=== PATIENT | female | born 1960 ===

== ENCOUNTER 2018-09-13 09:22 | Observation (INO) | payer SELFPAY ==
[2018-09-13] MEDS ORDERED: ASPIRIN PO ONE (09:41)
[2018-09-13 09:57] LABS: Basophils % (Auto) 0.7 % (0.0-1.8); Eosinophils # (Auto) 0.1 K/mm3 (0.0-0.4); Eosinophils % (Auto) 2.3 % (0.0-4.3); Hematocrit 36.8 % (30.3-42.9); Hemoglobin 12.7 gm/dl (10.1-14.3); Lymphocytes # (Auto) 1.6 K/mm3 (1.2-5.4); Lymphocytes % (Auto) 29.3 % (13.4-35.0); Mean Corpuscular HGB Conc 35 % (30-34); Mean Corpuscular Volume 84 fl (79-97); Monocytes # (Auto) 0.4 K/mm3 (0.0-0.8); Monocytes % (Auto) 6.6 % (0.0-7.3); Platelet Count 220 K/mm3 (140-440); Red Blood Count 4.38 M/mm3 (3.65-5.03); Red Cell Distribution Width 13.2 % (13.2-15.2)
--- NOTE | 2018-09-13 10:07 | XRay Report ---
Chest 2 views: History: Chest pain. Findings: Normal cardiomediastinal silhouette. Trachea is midline. No consolidation, pneumothorax or pleural effusion. Impression: No acute cardiopulmonary findings.
[2018-09-13 10:34] LABS: Hemolysis Index 0
[2018-09-13 11:18] LABS: INR 1.07 (0.87-1.13)
[2018-09-13] MEDS ORDERED: IBUPROFEN PO ONE (12:23)
[2018-09-13] MEDS ORDERED: TYLENOL PO ONE (12:23)
[2018-09-13] MEDS ORDERED: CARAFATE PO ONE (12:23)
[2018-09-13] MEDS ORDERED: PEPCID IV ONE (12:23)
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
[2018-09-13 12:30] LABS: BUN/Creatinine Ratio 10; Blood Urea Nitrogen 7 mg/dL (7-17); Calcium 8.8 mg/dL (8.4-10.2)
[2018-09-13] MEDS ORDERED: PEPCID ONE (12:39)
[2018-09-13] MEDS ORDERED: PEPCID PO ONE (12:41)
[2018-09-13] MEDS ORDERED: NACL 0.9% 500 ML 500 ML IV ONE (12:59)
[2018-09-13] MEDS ORDERED: NACL 0.9% 500 ML 500 ML ONE (13:16)
--- NOTE | 2018-09-13 20:53 | History and Physical Report ---
History of Present Illness Date of examination: 09/13/18 Date of admission: 09/13/18 12:23 Chief complaint: Chest pain for one day History of present illness: 58-year-old female presents to the emergency room with a complaint of chest pain, left neck pain, and left arm numbness. Patient reports that over the past couple days, she's been having left-sided neck pain, left anterior chest pain, nausea, sweating, exertional shortness of breath, and occasional pain that radiates down her left upper extremity. She denies DVT, pulmonary embolus risk factors.No exacerbating or relieving factors. Past Medical History Hx Asthma: Yes Additional medical history: irregular heart beat Social History Smoking Status: Never Smoker Substance Use Type: None Family History None Surgery history None Medications Home Medications: Home Medications Medication Instructions Recorded Confirmed Last Taken Type Aspirin [Adult Aspirin] 81 mg PO DAILY 09/13/18 09/13/18 09/13/18 History Review of Systems ROS: Stated complaint: CHEST PAIN Other details as noted in HPI Constitutional: malaise, weakness. denies: fever Eyes: denies: eye discharge Respiratory: shortness of breath Cardiovascular: chest pain Gastrointestinal: nausea. denies: vomiting Genitourinary: denies: dysuria Musculoskeletal: myalgia. denies: back pain Neurological: numbness, paresthesias Medications and Allergies Allergies Allergy/AdvReac Type Severity Reaction Status Date / Time No Known Allergies Allergy Unverified 09/13/18 09:40 Home Medications Medication Instructions Recorded Confirmed Last Taken Type Aspirin [Adult Aspirin] 81 mg PO DAILY 09/13/18 09/13/18 09/13/18 History Exam - Constitutional Vitals: Temp Pulse Resp BP Pulse Ox 99.4 F 59 L 16 90/54 98 09/13/18 19:53 09/13/18 19:53 09/13/18 19:53 09/13/18 19:53 09/13/18 19:53 General appearance: Present: no acute distress, well-nourished - EENT Eyes: Present: PERRL ENT: hearing intact, clear oral mucosa - Neck Neck: Present: supple, normal ROM - Respiratory Respiratory effort: normal Respiratory: bilateral: CTA - Cardiovascular Heart rate: 78 Rhythm: regular Heart Sounds: Present: S1 & S2. Absent: rub, click - Extremities Extremities: no ischemia, pulses intact, pulses symmetrical, No edema Peripheral Pulses: within normal limits - Abdominal General gastrointestinal: Present: soft, non-tender, non-distended, normal bowel sounds Female genitourinary: Present: normal - Integumentary Integumentary: Present: clear, warm, dry - Musculoskeletal Musculoskeletal: gait normal, strength equal bilaterally - Psychiatric Psychiatric: appropriate mood/affect, intact judgment & insight - Neurologic Neurologic: CNII-XII intact, moves all extremities - Allied Health Allied health notes reviewed: nursing, case management Results - Labs CBC & Chem 7: 09/14/18 05:59 09/14/18 05:59 Labs: Laboratory Last Values WBC 5.5 K/mm3 (4.5-11.0) 09/13/18 09:45 RBC 4.38 M/mm3 (3.65-5.03) 09/13/18 09:45 Hgb 12.7 gm/dl (10.1-14.3) 09/13/18 09:45 Hct 36.8 % (30.3-42.9) 09/13/18 09:45 MCV 84 fl (79-97) 09/13/18 09:45 MCH 29 pg (28-32) 09/13/18 09:45 MCHC 35 % (30-34) H 09/13/18 09:45 RDW 13.2 % (13.2-15.2) 09/13/18 09:45 Plt Count 220 K/mm3 (140-440) 09/13/18 09:45 Lymph % (Auto) 29.3 % (13.4-35.0) 09/13/18 09:45 [place] % (Auto) 6.6 % (0.0-7.3) 09/13/18 09:45 Eos % (Auto) 2.3 % (0.0-4.3) 09/13/18 09:45 Baso % (Auto) 0.7 % (0.0-1.8) 09/13/18 09:45 Lymph # 1.6 K/mm3 (1.2-5.4) 09/13/18 09:45 [place] # 0.4 K/mm3 (0.0-0.8) 09/13/18 09:45 Eos # 0.1 K/mm3 (0.0-0.4) 09/13/18 09:45 Baso # 0.0 K/mm3 (0.0-0.1) 09/13/18 09:45 Seg Neutrophils % 61.1 % (40.0-70.0) 09/13/18 09:45 Seg Neutrophils # 3.4 K/mm3 (1.8-7.7) 09/13/18 09:45 PT 14.6 Sec. (12.2-14.9) 09/13/18 10:53 INR 1.07 (0.87-1.13) 09/13/18 10:53 Sodium 141 mmol/L (137-145) 09/13/18 09:45 Potassium 3.9 mmol/L (3.6-5.0) 09/13/18 09:45 Chloride 60.0 mmol/L (98-107) L 09/13/18 09:45 Carbon Dioxide 24 mmol/L (22-30) 09/13/18 09:45 17 mmol/L 09/13/18 09:45 BUN 7 mg/dL (7-17) 09/13/18 09:45 < 0.2 mg/dL (0.7-1.2) L 09/13/18 09:45 Estimated GFR > 60 ml/min 09/13/18 09:45 10 % 09/13/18 09:45 Glucose 92 mg/dL (65-100) 09/13/18 09:45 Calcium 8.8 mg/dL (8.4-10.2) 09/13/18 09:45 < 0.010 ng/mL (0.00-0.029) 09/13/18 16:12 Short CBC 09/13/18 09/14/18 Range/Units 09:45 05:59 WBC 5.5 5.2 (4.5-11.0) K/mm3 Hgb 12.7 12.9 (10.1-14.3) gm/dl Hct 36.8 37.4 (30.3-42.9) % Plt Count 220 197 (140-440) K/mm3 BMP 09/13/18 09/14/18 09:45 05:59 Sodium 141 142 Potassium 3.9 3.8 Chloride 60.0 L 108.9 H Carbon Dioxide 24 24 BUN 7 8 Creatinine < 0.2 L 0.7 D Glucose 92 96 Calcium 8.8 8.4 Cardiac Enzymes 05/07/19 05/07/19 05/07/19 Range/Units 09:45 14:19 16:12 Troponin T < 0.010 < 0.010 < 0.010 (0.00-0.029) ng/mL 09/13/18 09/14/18 Range/Units 21:50 05:59 Troponin T < 0.010 < 0.010 (0.00-0.029) ng/mL Liver Function 09/14/18 Range/Units 05:59 Total Bilirubin 0.20 (0.1-1.2) mg/dL AST 14 (5-40) units/L ALT 11 (7-56) units/L Alkaline Phosphatase 79 (35-129) units/L Albumin 3.6 L (3.9-5) g/dL - Imaging and Cardiology EKG: report reviewed (RBBB 50/min,Sinus bradycardia) Chest x-ray: report reviewed (NAF) Assessment and Plan Advance Directives: Yes (Full code) VTE prophylaxis?: Chemical Plan of care discussed with patient/family: Yes - Patient Problems (1) Chest pain Current Visit: Yes Status: Acute Qualifiers: Chest pain type: unspecified Qualified Code(s): R07.9 - Chest pain, unspecified Plan to address problem: Chest pain protocol Serial cardiac enzymes Lexiscan in AM (2) RBBB Current Visit: Yes Status: Chronic Plan to address problem: Cardiolgy consult (3) DVT prophylaxis Current Visit: Yes Status: Acute Plan to address problem: On Lovenox and GI prophylaxis
[2018-09-13] MEDS ORDERED: TYLENOL PO PRN (20:54)
[2018-09-13] MEDS ORDERED: MORPHINE IV PRN (20:54)
[2018-09-13] MEDS ORDERED: SODIUM CHLORIDE FLUSH SYRINGE 10 ML IV PRN (20:54)
[2018-09-13] MEDS ORDERED: ZOFRAN IV PRN (20:54)
[2018-09-13] MEDS ORDERED: LOVENOX SUB-Q SCH (22:00)
[2018-09-13] MEDS: PERCOCET 5/325 PO PRN (22:19)
[2018-09-13] MEDS: SODIUM CHLORIDE FLUSH SYRINGE 10 ML IV SCH (22:20)
[2018-09-13] MEDS: PEPCID PO SCH (22:20)
[2018-09-13] MEDS: HALFPRIN EC PO SCH (22:22)
[2018-09-14 06:20] LABS: Basophils % (Auto) 0.4 % (0.0-1.8); Eosinophils # (Auto) 0.2 K/mm3 (0.0-0.4); Eosinophils % (Auto) 3.3 % (0.0-4.3); Hematocrit 37.4 % (30.3-42.9); Hemoglobin 12.9 gm/dl (10.1-14.3); Lymphocytes # (Auto) 2.2 K/mm3 (1.2-5.4); Lymphocytes % (Auto) 42.2 % (13.4-35.0); Mean Corpuscular HGB Conc 34 % (30-34); Mean Corpuscular Volume 85 fl (79-97); Monocytes # (Auto) 0.3 K/mm3 (0.0-0.8); Monocytes % (Auto) 6.7 % (0.0-7.3); Platelet Count 197 K/mm3 (140-440); Red Blood Count 4.41 M/mm3 (3.65-5.03); Red Cell Distribution Width 13.3 % (13.2-15.2)
[2018-09-14 06:49] LABS: Alanine Aminotransferase 11 units/L (7-56); Albumin 3.6 g/dL (3.9-5); BUN/Creatinine Ratio 11; Blood Urea Nitrogen 8 mg/dL (7-17); Calcium 8.4 mg/dL (8.4-10.2); Hemolysis Index 3
[2018-09-14] MEDS ORDERED: LEXISCAN IV ONE ×2 (08:23→08:28)
[2018-09-14] MEDS: PEPCID PO SCH (10:53)
[2018-09-14] MEDS: HALFPRIN EC PO SCH (10:53)
[2018-09-14] MEDS: PERCOCET 5/325 PO PRN (10:53)
[2018-09-14] MEDS: SODIUM CHLORIDE FLUSH SYRINGE 10 ML IV SCH (10:55)
[2018-09-14 12:31] VITALS: BP 90/55
--- NOTE | 2018-09-14 13:46 | Discharge Summary ---
Providers - Providers Date of Admission: 09/13/18 12:23 Date of discharge: 09/14/18 Attending physician: PEYMAN ALONSO 09/14/18 07:38 Consult to Physician [CONS] Routine Comment: Consulting Provider: CONNOR KENNEDY Physician Instructions: Reason For Exam: RBBB.Chest pain Hospitalization Condition: Good Hospital course: Patient is 58 yo presented to the emergency room with chest pain radiating to left upper extremity. She also complained of nausea. She was seen and examined in ED. Troponin was normal. Patient was given Aspirin and admitted. Stress test done following day was normal. She was therefore discharged home to follow as outpatient. Chest pain due to GERD. Disposition: - TO HOME OR SELFCARE - Discharge Diagnoses (1) GERD (gastroesophageal reflux disease) Status: Acute (2) Chest pain Status: Acute Qualifiers: Chest pain type: unspecified Qualified Code(s): R07.9 - Chest pain, unspecified Core Measure Documentation - Palliative Care Palliative Care/ Comfort Measures: Not Applicable - Core Measures Any of the following diagnoses?: none Exam - Constitutional Vitals: Temp Pulse Resp BP Pulse Ox 98.4 F 66 18 90/55 100 09/14/18 11:59 09/14/18 11:59 09/14/18 11:59 09/14/18 11:59 09/14/18 11:59 Plan Activity: no restrictions Diet: low fat, low cholesterol, low salt Additional Instructions: 1.Follow up with PCP in 1 week. Follow up with: [facility] [Other] - 3-5 Days Forms: Work/School Release Form Prescriptions: Famotidine [Pepcid] 20 mg PO BID #30 tablet
--- NOTE | 2018-09-14 19:53 | Treadmill Report ---
INDICATION: Atypical chest pain. ORDERING PHYSICIAN: Chloe Corona MD FINDINGS: There is no scintigraphic evidence of myocardial ischemia. The left ventricle is normal in size and systolic function. The left ventricular ejection fraction is measured at 59%. Normal wall motion and wall thickening on gated imaging. CONCLUSION: Normal myocardial perfusion scan. JOB# [id number] SJ/FIDEL
== END 2018-09-14 16:40 | disposition home or self-care (01) ==
LOC: ED 09:22 → 4A 12:23
PROVIDERS: ADMIT Internal Medicine; ATTEND Internal Medicine
DX: R07.89 Other chest pain (principal); I45.10 Unspecified right bundle-branch block; J45.909 Unspecified asthma, uncomplicated; K21.9 Gastro-esophageal reflux disease without esophagitis; Z79.82 Long term (current) use of aspirin
CPT/HCPCS: 36415; 71045; 78452; 80048; 80053; 83036; 84484; 85025; 85610; 93005; 93010; 93017; 96372; 99284; A9502; G0378; J1650; J2785; J7040

== ENCOUNTER 2018-11-15 12:06 | Emergency (ER) | payer OTHER ==
[2018-11-15 12:19] VITALS: BP 108/61
--- NOTE | 2018-11-15 12:19 | Emergency Department Report ---
Blank Doc - Documentation Documentation: 58 y o female presents with neck pain today s/p injury at work spinal and neck muscle tenderness CT neck ACC
[2018-11-15] MEDS ORDERED: TYLENOL PO ONE (12:46)
[2018-11-15] MEDS ORDERED: IBUPROFEN PO ONE (12:46)
--- NOTE | 2018-11-15 14:09 | Emergency Department Report ---
ED Neck Pain/Injury HPI - General Chief Complaint: Neck Pain/Injury Stated Complaint: NECK PAIN Time Seen by Provider: 11/15/18 12:18 Mode of arrival: Ambulatory Limitations: No Limitations - History of Present Illness Initial Comments: Patient was at work leaning over looking at a shelf and a box from the shelf came down and hit her in the forehead was then knocked her backwards. Patient is denying any loss of consciousness and was complaining of some generalized neck pain after the fall. She denies any radiation of pain down her arms. Patient states pain is nonerythematous where it is worse with movement better with rest. This occurred prior to arrival. - Related Data Home Medications Medication Instructions Recorded Confirmed Last Taken Aspirin [Adult Aspirin] 81 mg PO DAILY 09/13/18 09/13/18 09/13/18 Previous Rx's Medication Instructions Recorded Last Taken Type Famotidine [Pepcid] 20 mg PO BID #30 tablet 09/14/18 Unknown Rx HYDROcodone/APAP 5-325 [[place] 1 each PO Q6HR PRN #14 tablet 11/15/18 Unknown Rx 5/325] Ibuprofen [Motrin 800 MG tab] 800 mg PO Q8HR PRN #10 tablet 11/15/18 Unknown Rx methOCARBAMOL [Robaxin TAB] 500 mg PO Q6H PRN #14 tablet 11/15/18 Unknown Rx Allergies Allergy/AdvReac Type Severity Reaction Status Date / Time No Known Allergies Allergy Unverified 09/13/18 09:40 ED Review of Systems ROS: Stated complaint: NECK PAIN Other details as noted in HPI Comment: All other systems reviewed and negative ED Past Medical Hx - Past Medical History Previous Medical History?: Yes Hx Asthma: Yes Additional medical history: irregular heart beat - Social History Smoking Status: Never Smoker Substance Use Type: None - Medications Home Medications: Home Medications Medication Instructions Recorded Confirmed Last Taken Type Aspirin [Adult Aspirin] 81 mg PO DAILY 09/13/18 09/13/18 09/13/18 History Famotidine [Pepcid] 20 mg PO BID #30 tablet 09/14/18 Unknown Rx HYDROcodone/APAP 5-325 [[place] 1 each PO Q6HR PRN #14 tablet 11/15/18 Unknown Rx 5/325] Ibuprofen [Motrin 800 MG tab] 800 mg PO Q8HR PRN #10 tablet 11/15/18 Unknown Rx methOCARBAMOL [Robaxin TAB] 500 mg PO Q6H PRN #14 tablet 11/15/18 Unknown Rx ED Physical Exam - General Limitations: No Limitations General appearance: alert, in no apparent distress - Head Head exam: Present: atraumatic, normocephalic - Eye Eye exam: Present: normal appearance - ENT ENT exam: Present: mucous membranes moist - Neck Neck exam: Present: normal inspection, tenderness (generalized) - Respiratory Respiratory exam: Present: normal lung sounds bilaterally. Absent: respiratory distress - Cardiovascular Cardiovascular Exam: Present: regular rate, normal rhythm. Absent: systolic murmur, diastolic murmur, rubs, gallop - GI/Abdominal GI/Abdominal exam: Present: soft, normal bowel sounds - Extremities Exam Extremities exam: Present: normal inspection - Back Exam Back exam: Present: normal inspection - Neurological Exam Neurological exam: Present: alert, oriented X3 - Psychiatric Psychiatric exam: Present: normal affect, normal mood - Skin Skin exam: Present: warm, dry, intact, normal color. Absent: rash ED Course Vital Signs 11/15/18 12:17 Temperature 98.3 F Pulse Rate 77 Respiratory 20 Rate Blood Pressure 108/61 O2 Sat by Pulse 99 Oximetry ED Medical Decision Making - Radiology Data Radiology results: image reviewed (C-spine CT shows no acute process generalized degenerative changes) Critical care attestation.: If time is entered above; I have spent that time in minutes in the direct care of this critically ill patient, excluding procedure time. ED Disposition Clinical Impression: Cervical strain Qualifiers: Encounter type: initial encounter Qualified Code(s): S16.1XXA - Strain of muscle, fascia and tendon at neck level, initial encounter Disposition: - TO HOME OR SELFCARE Is pt being admited?: No Does the pt Need Aspirin: No Condition: Stable Instructions: Cervical Spine Strain (ED) Referrals: ANA M CARDONA MD [Staff Physician] - 3-5 Days Time of Disposition: 14:08
--- NOTE | 2018-11-15 14:12 | Cat Scan Report ---
CT CERVICAL SPINE WITHOUT CONTRAST INDICATION: Neck pain and stiffness, chronic. TECHNIQUE: Axial imaging performed through the cervical spine without the use of contrast. Sagittal and coronal reconstructed images were also reviewed. All CT scans at this location are performed us ing CT dose reduction for ALARA by means of automated exposure control. COMPARISON: None FINDINGS: Alignment: There is straightening of the normal lordosis. There is normal alignment of the cervical vertebra otherwise. Bones: There is no acute osseous abnormality. Minimal anterior spurring is noted at C5-6. The remai nery levels are within normal limits. Soft tissues: No acute or significant incidental soft tissue abnormality. IMPRESSION: Minimal degenerative disc disease at C5-6. Straightening of the normal lordosis which co uld be secondary to positioning or muscular spasm. No acute injury is identified. Signer Name: Jose Mak Jr, MD Signed: 11/15/2018 2:07 PM Workstation Name: [id number]
== END 2018-11-15 14:22 | disposition home or self-care (01) ==
LOC: ED 12:06
DX: S16.1XXA Strain of muscle, fascia and tendon at neck level, initial encounter (principal); J45.909 Unspecified asthma, uncomplicated; W22.8XXA Striking against or struck by other objects, initial encounter; Y93.89 Activity, other specified; Y92.89 Other specified places as the place of occurrence of the external cause; Y99.8 Other external cause status
CPT/HCPCS: 72125